=== PATIENT | female | born 1955 | race Two or more races ===

== ENCOUNTER 2018-04-04 18:06 | Inpatient (IN) | payer SELFPAY ==
[~2018-04-04] VITALS: Ht 165.1 cm; Wt 60.6 kg
[2018-04-04] MEDS ORDERED: METHYLPREDNISOLONE SOD SUCC 125 MG/2 ML VIAL IV STA (18:15)
[2018-04-04] MEDS ORDERED: ALBUTEROL (0.083%) 2.5MG/3ML NEB HHN STA (18:15)
[2018-04-04] MEDS ORDERED: MAGNESIUM 2 G PREMIX 50 ML IV ONE (18:15)
[2018-04-04] MEDS ORDERED: IPRATROPIUM BROMIDE (0.02%) 0.5MG/2.5ML NEB HHN STA (18:15)
[2018-04-04 18:42] LABS: CHLORIDE 100 mEq/L (98-107)
[2018-04-04 18:43] LABS: INR 1.1; PROTHROMBIN TIME 10.6 sec (9.1-11.1)
[2018-04-04 18:44] LABS: BASOPHILS % 0.9 % (0.0-2.0); EOSINOPHILS % 8.2 % (0.0-5.0); HEMOGLOBIN. 14.4 g/dL (12.0-16.0); LYMPHOCYTES % 45.6 % (20.0-50.0); MEAN CORPUSCULAR VOLUME 91.9 fL (81.0-99.0); MEAN PLATELET VOLUME 9.8 fl (7.4-10.4); MONOCYTES % 7.9 % (2.0-8.0); NEUTROPHILS % 37.4 % (40.0-76.0); PLATELET 246 x1000/uL (130-400); RED BLOOD CELL COUNT 4.79 mill/uL (4.2-5.4)
[2018-04-04 19:02] LABS: BG BASE EXCESS 4.8 mmol/L (-2.0-2.0); BG BILEVEL POS AIRWAY PRESSURE 15/5; BG CARBOXYHEMOGLOBIN 1.3 % (0.5-1.5); BG DEOXYHEMOGLOBIN 10.3 % (0.0-5.0); BG FRACTION INSPIRED OXYGEN 100; BG HCO3 ACT 32.4 mmol/L (22.0-26.0); BG METHEMOGLOBIN 0.4 % (0.0-1.5); BG OXYGEN SATURATION 89.5 % (92.0-98.5); BG PCO2 61.3 mmHg (35.0-45.0); BG PH 7.341 (7.350-7.450); BG SAMPLE SITE RIGHT RADIAL; BG TOTAL HEMOGLOBIN 14.3 g/dL (12.0-18.0); BG VENT MODE MASK - BIPAP; BG VENT RATE 16 set
[2018-04-04] MEDS ORDERED: NITROGLYCERIN OINT 1GM/INCH UDPKT TD ONE (19:45)
[2018-04-04] MEDS ORDERED: FUROSEMIDE 40MG/4ML VIAL IVP ONE (19:45)
[2018-04-04] MEDS ORDERED: ASPIRIN 81MG TABLET PO ONE (20:15)
[2018-04-04] MEDS ORDERED: POTASSIUM CHLORIDE INJ 40 MEQ in DEXT 5% WATER 250 ML IV ONE (20:15)
[2018-04-05] VITALS (17 sets, daily range): BP systolic 118–211; BP diastolic 61–106
[2018-04-05] MEDS ORDERED: METOPROLOL TARTRATE 50MG TABLET PO NR (00:15)
[2018-04-05] MEDS ORDERED: ONDANSETRON HCL 4MG/2ML INJ IV PRN (00:15)
[2018-04-05] MEDS ORDERED: AMLODIPINE 10MG TABLET PO NR (00:15)
[2018-04-05] MEDS ORDERED: ACETAMINOPHEN 325MG TABLET PO PRN (00:15)
[2018-04-05] MEDS ORDERED: LISINOPRIL 20MG TABLET PO NR (00:15)
[2018-04-05] MEDS: CLONIDINE 0.1MG TABLET PO PRN ×2 (00:46→20:47)
[2018-04-05] MEDS ORDERED: AMLODIPINE 10MG TABLET PO SCH (01:00)
[2018-04-05] MEDS: IPRATROPIUM/ALBUTEROL 0.5-3(2.5)MG/3ML NEB HHN PRN (01:07)
[2018-04-05 06:24] LABS: HEMATOCRIT. 38.5 % (36.0-48.0); HEMOGLOBIN. 12.7 g/dL (12.0-16.0); MEAN CORPUSCULAR HEMOGLOBIN 30.1 pg (28.0-32.0); MEAN PLATELET VOLUME 9.6 fl (7.4-10.4); PLATELET 208 x1000/uL (130-400); RED BLOOD CELL COUNT 4.24 mill/uL (4.2-5.4); RED CELL DISTRIBUTION WIDTH 14.6 % (11.6-14.6)
[2018-04-05 06:58] LABS: CHLORIDE 101 mEq/L (98-107)
[2018-04-05 07:06] LABS: LDL CHOLESTEROL 81 mg/dL (5-100)
[2018-04-05 07:07] LABS: HDL CHOLESTEROL 63 mg/dL (40-59)
[2018-04-05] MEDS ORDERED: FUROSEMIDE 40MG/4ML VIAL IVP SCH (09:15)
[2018-04-05] MEDS: ASPIRIN 325MG EC TABLET PO SCH (09:22)
[2018-04-05] MEDS: AMLODIPINE 10MG TABLET PO SCH (09:23)
[2018-04-05] MEDS: LISINOPRIL 20MG TABLET PO SCH (09:23)
[2018-04-05] MEDS: METOPROLOL TARTRATE 50MG TABLET PO SCH ×2 (09:24→20:48)
[2018-04-05] MEDS: ENOXAPARIN 40MG/0.4ML SYR SUBCUT SCH (09:27)
[2018-04-05] MEDS: BUDESONIDE 0.5MG/2ML NEB HHN SCH ×2 (09:28→20:33)
[2018-04-05] MEDS: NICOTINE 7MG PATCH TD SCH (10:00)
[2018-04-05] MEDS ORDERED: LEVOFLOXACIN 500MG TABLET PO SCH (11:00)
[2018-04-05 12:15] LABS: PLATELET ESTIMATE NORMAL
[2018-04-05] MEDS ORDERED: BENZONATATE 100MG CAPSULE PO PRN (12:45)
[2018-04-05] MEDS ORDERED: OSELTAMIVIR 75MG CAPSULE PO SCH (12:45)
[2018-04-05] MEDS: PREDNISONE 20MG TABLET PO SCH ×2 (13:00→20:48)
[2018-04-05] MEDS: OSELTAMIVIR 75MG CAPSULE PO SCH ×2 (14:00→23:10)
[2018-04-05] MEDS ORDERED: THROAT LOZENGES-BENZOCAINE/MENTH/CETYLPYRD CL LOZENGES MM PRN (14:00)
[2018-04-05] MEDS: AZITHROMYCIN 500 MG in DEXT 5% WATER 250 ML IV SCH (14:00)
[2018-04-05 19:56] LABS: T4 FREE 0.92 ng/dL (0.76-1.46)
[2018-04-05] MEDS: IPRATROPIUM/ALBUTEROL 0.5-3(2.5)MG/3ML NEB HHN SCH (20:33)
[2018-04-05] MEDS: FLUTICASONE PROPIONATE 50MCG/SPRAY BOTTLE BOTHNSTRLS SCH (20:48)
[2018-04-05] MEDS ORDERED: MONTELUKAST SODIUM 10MG TABLET PO SCH (21:00)
[2018-04-06] VITALS (12 sets, daily range): BP systolic 134–193; BP diastolic 55–109
[2018-04-06] MEDS: IPRATROPIUM/ALBUTEROL 0.5-3(2.5)MG/3ML NEB HHN SCH ×2 (01:12→09:11)
[2018-04-06] MEDS: NICOTINE 7MG PATCH TD SCH (08:10)
[2018-04-06] MEDS: OSELTAMIVIR 75MG CAPSULE PO SCH (08:11)
[2018-04-06] MEDS: LISINOPRIL 20MG TABLET PO SCH (08:11)
[2018-04-06] MEDS: ENOXAPARIN 40MG/0.4ML SYR SUBCUT SCH (08:11)
[2018-04-06] MEDS: PREDNISONE 20MG TABLET PO SCH (08:11)
[2018-04-06] MEDS: ASPIRIN 325MG EC TABLET PO SCH (08:11)
[2018-04-06] MEDS: METOPROLOL TARTRATE 50MG TABLET PO SCH ×2 (08:12→12:34)
[2018-04-06] MEDS: FLUTICASONE PROPIONATE 50MCG/SPRAY BOTTLE BOTHNSTRLS SCH (08:12)
[2018-04-06] MEDS: AMLODIPINE 10MG TABLET PO SCH (08:12)
[2018-04-06] MEDS: BUDESONIDE 0.5MG/2ML NEB HHN SCH (09:11)
[2018-04-06 09:56] LABS: CLARITY URINE CLEAR (CLEAR); COLOR URINE DARK YELLOW (YELLOW); KETONES URINE NEGATIVE (NEGATIVE); LEUKOCYTE ESTERASE URINE 2+ (NEGATIVE); NITRITE URINE NEGATIVE (NEGATIVE); OCCULT BLOOD URINE NEGATIVE (NEGATIVE); PROTEIN URINE NEGATIVE (NEGATIVE); SPECIFIC GRAVITY URINE 1.026 (1.005-1.030)
[2018-04-06 10:24] LABS: *AMPHETAMINES SCREEN URINE NEGATIVE (NEGATIVE); *BENZODIAZEPINES SCREEN URINE NEGATIVE (NEGATIVE); CANNABINOID URINE SCREEN NEGATIVE (NEGATIVE)
[2018-04-06 10:25] LABS: *BARBITURATES SCREEN URINE NEGATIVE (NEGATIVE); *COCAINE SCREEN URINE NEGATIVE (NEGATIVE); OPIATES URINE SCREEN NEGATIVE (NEGATIVE)
[2018-04-06 10:26] LABS: METHADONE URINE SCREEN NEGATIVE (NEGATIVE); PHENCYCLIDINE URINE SCREEN NEGATIVE (NEGATIVE)
[2018-04-06] MEDS: IPRATROPIUM/ALBUTEROL 0.5-3(2.5)MG/3ML NEB HHN PRN (13:10)
[2018-04-06] MEDS: AZITHROMYCIN 500 MG in DEXT 5% WATER 250 ML IV SCH (13:37)
[2018-04-06] MEDS: CLONIDINE 0.1MG TABLET PO PRN (17:59)
== END 2018-04-06 18:50 | disposition home or self-care (01) | DRG 720 ==
LOC: ER 18:06 → EDBEDREQ 18:18 → 5EST 20:13 → EDBEDREQ 20:28 → EDBEDREQSVC 20:28 → EDBEDREQTM 20:28 → ENRESERV 21:56
PROVIDERS: ADMIT Internal Medicine; ATTEND Internal Medicine
DX: A41.9 Sepsis, unspecified organism (principal); J96.01 Acute respiratory failure with hypoxia; I50.33 Acute on chronic diastolic (congestive) heart failure; J96.02 Acute respiratory failure with hypercapnia; J18.1 Lobar pneumonia, unspecified organism; I11.0 Hypertensive heart disease with heart failure; E87.6 Hypokalemia; F17.210 Nicotine dependence, cigarettes, uncomplicated; I16.0 Hypertensive urgency; J98.11 Atelectasis; J44.0 Chronic obstructive pulmonary disease with (acute) lower respiratory infection; J44.1 Chronic obstructive pulmonary disease with (acute) exacerbation; Z71.6 Tobacco abuse counseling; Z82.49 Family history of ischemic heart disease and other diseases of the circulatory system
CPT/HCPCS: 36415; 36600; 71045; 80048; 80061; 80305; 82375; 82805; 83036; 83605; 83880; 84439; 84443; 84481; 84484; 87804; 93005; 93306; 94640; 94644; 94660; 96365; 96366; 96367; 96375; 99291; J0456; J1650; J1940; J2930; J3475; J3480; J7060; J7512; J7611; J7620; J7626